=== PATIENT | male | born 1945 | race Caucasian/White ===

== ENCOUNTER → 2022-04-12 08:04 | Outpatient (CLI) | payer MEDICARE, SELFPAY ==
[2022-04-12 11:50] LABS: COVID19 -Nasal RAPID Negative (Negative)
--- NOTE | 2022-04-13 11:37 | PM.TREADMILL ---
Cardiac Stress Test Report Referral & Results Date Patient Seen: 04/13/22 Time Patient Seen: 11:37 Requesting provider: Jose Alejandro Carpenter Indication: chest pain Rest ECG: Sinus rhythm Procedure Note: Ater 1.30 mins into the Bryan protocol complained of leg pain . Test changed to a Lexiscan stress test After Lexiscan stress test had minimal dyspnea and no chest discomfort No significant ST changes after Lexiscan injection No ectopy Impression: Normal Lexiscan stress test Nuclear images pending Please note: Actual ECG tracings can be found in the PACS system.
--- NOTE | 2022-04-13 21:04 | DI.NM.S_ITS ---
DATE OF SERVICE: 04/12/2022 PROCEDURE PERFORMED: Pharmacologic vasodilator stress and rest myocardial perfusion imaging with gating to assess ejection fraction and regional wall motion. ORDERING PROVIDER: Dr. Jose Alejandro Carpenter. INDICATIONS: The patient is a 76-year-old male with exertional chest discomfort. CARDIAC STRESS: The patient was initially walked on the treadmill but had limiting leg pain and therefore this study was changed to a pharmacologic vasodilator stress by infusing 0.4 mg of regadenoson. With this, he had a normal hemodynamic response and denied any chest discomfort or dyspnea. His resting ECG shows sinus rhythm with relatively normal ST segments. There are no significant ST-segment shifts or arrhythmias with stress. Per protocol, 25.3 millicuries of technetium-99m Myoview was injected and he was imaged 20 minutes later using a gated SPECT acquisition protocol. The day prior while at rest, he had been injected with 24.2 millicuries of technetium-99m Myoview was imaged 20 minutes later, again using a gated SPECT acquisition protocol. FINDINGS: 1. Raw data: There is fairly good myocardial tracer uptake without any motion artifact. Lung/heart ratio is at the upper limits of normal at 0.40 with a normal TID ratio of 1.05. 2. Quantitated gated SPECT: Post-stress ejection fraction is estimated at 60% with the suggestion of proximal to mid inferior wall hypokinesis that is not apparent on the resting images. Resting ejection fraction is 70% with end-diastolic volume of 82 mL. 3. Myocardial perfusion imaging study: Post-stress supine images shows a moderate to severe perfusion defect in the proximal to mid inferior wall, extending slightly into the distal inferior wall. While this defect improves, it does not completely resolve on the prone images except distally, suggesting this likely reflects a true perfusion defect. The resting images show significant improvement in the mid to distal portion of the inferior defect with moderate improvement at the base of the inferior wall. IMPRESSION: 1. Probable abnormal myocardial perfusion study. 2. Moderate to severe proximal to mid inferior defect that is partially fixed, but predominantly reversible with a probable associated wall motion abnormality, suggesting probable ischemia in the inferior wall with intermixed infarct, although some degree of diaphragmatic attenuation cannot be entirely excluded. 3. Preserved left ventricular systolic function, although with suggestion of hypokinesis in the proximal to mid inferior wall. The lung/heart ratio was borderline elevated at 0.40. 4. No angina or ECG evidence of ischemia with pharmacologic vasodilator stress. Timmy Fernandez - LI/david/eulalia doc#: [id number]/job#: [id number] dd: 04/13/2022 14:25:00 dt: 04/13/2022 20:56:00 DICTATING MD/COPIES TO: Jones Dougherty MD; Jose Alejandro Carpenter M.D. COPIES MNE: FLOR;
== END ==
PROVIDERS: PCP Family Medicine; Referring Provider Family Medicine; Visit Provider Family Medicine
DX: R07.89 Other chest pain (principal); Z20.822 Contact with and (suspected) exposure to COVID-19
CPT/HCPCS: 78452; 87635; 93017; A9502; J2785

== ENCOUNTER → 2024-12-07 14:28 | Outpatient (CLI) | payer MEDICARE, SELFPAY ==
--- NOTE | 2024-12-07 14:31 | DI.RAD.S_ITS ---
PROCEDURE: XR CHEST 2V INDICATIONS: Cough TECHNIQUE: 2 views of the chest were acquired. COMPARISON: None. FINDINGS: Surgical changes and devices: None. Lungs and pleura: Diffuse peribronchial thickening. Suspected focal opacity is seen in the right lower lung, confirmed on lateral view. No pleural effusions. Mediastinum: Normal heart size Bones and chest wall: Degenerative changes IMPRESSION: Diffuse peribronchial thickening may represent bronchitis. Mild opacity is seen in the right lower lobe, confirmed on lateral view, which may represent early airspace consolidation. Consider future imaging surveillance to assess for resolution. Dictated by: Bill Gilbert M.D. on 12/07/2024 at 19:38 Approved by: Bill Gilbert M.D. on 12/07/2024 at 19:39
== END ==
PROVIDERS: PCP Family Medicine; Referring Provider Nurse Practitioner Family; Visit Provider Nurse Practitioner Family
DX: R05.9 Cough, unspecified (principal)
CPT/HCPCS: 71046